=== PATIENT | male | born 1955 | race Two or more races ===

== ENCOUNTER → 2017-06-20 | Outpatient (CLI) | payer MEDICAID | LOC: CIMAGING 19:49 | PROVIDERS: ATTEND Internal Medicine | DX: M25.551 Pain in right hip (principal); M25.552 Pain in left hip; R26.89 Other abnormalities of gait and mobility | CPT/HCPCS: 73521-PO ==

== ENCOUNTER → 2017-07-04 | Outpatient (CLI) | payer MEDICAID | LOC: CIMAGING 18:16 | PROVIDERS: ATTEND Internal Medicine | DX: M51.37 Other intervertebral disc degeneration, lumbosacral region (principal); M46.96 Unspecified inflammatory spondylopathy, lumbar region | CPT/HCPCS: 72100-PO ==

== ENCOUNTER → 2017-11-04 | Outpatient (CLI) | payer MEDICAID | LOC: FIMAGING 07:32 | PROVIDERS: ATTEND Psychiatry & Neurology Neurology | DX: M47.892 Other spondylosis, cervical region (principal); M48.02 Spinal stenosis, cervical region; M46.02 Spinal enthesopathy, cervical region; Q67.5 Congenital deformity of spine ==

== ENCOUNTER → 2017-11-20 | Outpatient (CLI) | payer MEDICAID ==
[~2017-11-20] MED LIST: IOPAMIDOL (ISOVUE-300) 100 ML BTL ONE
== END ==
LOC: FIMAGING 09:33
PROVIDERS: ATTEND Internal Medicine
DX: R10.31 Right lower quadrant pain (principal); Z78.9 Other specified health status; Z85.038 Personal history of other malignant neoplasm of large intestine
CPT/HCPCS: 74177-PO; Q9967

== ENCOUNTER → 2018-04-04 | Outpatient (CLI) | payer MEDICAID | LOC: FIMAGING 16:38 | PROVIDERS: ATTEND Family Medicine | DX: R22.31 Localized swelling, mass and lump, right upper limb (principal); R22.41 Localized swelling, mass and lump, right lower limb ==